=== PATIENT | female | born 2000 | race Caucasian/White ===

== ENCOUNTER → 2021-04-05 | Outpatient (CLI) | payer OTHER ==
--- NOTE | 2021-04-05 13:14 | DIREP ---
PROCEDURE:CHEST 1 VIEW COMPARISON:None. INDICATIONS:SCREENING FOR MRI, POSS IMPLANTED DEVICE FINDINGS: LUNGS/PLEURA:No significant pulmonary parenchymal abnormalities. No effusions. Artifact from patient's arm obscures left lower chest. VASCULATURE:Normal. Unremarkable pulmonary vasculature. CARDIAC:Normal. No cardiac silhouette abnormality or cardiomegaly. MEDIASTINUM:Normal. No visible mass or adenopathy. BONES:Normal. No fracture or visible bony lesion. OTHER:Loop recording device overlies the left upper chest. Circular opacity overlies the right upper lobe which likely represents artifact. CONCLUSION:Limited exam. There are findings consistent with a loop recording device overlying the left upper chest. Dictated by: Jd Maravilla M.D. on 04/05/2021 at 01:12 PM
== END | disposition home or self-care (01) ==
LOC: RAD 12:26
PROVIDERS: ATTEND Orthopaedic Surgery
DX: M25.512 Pain in left shoulder (principal)
CPT/HCPCS: 71045